=== PATIENT | male | born 1990 | race Hispanic/Latino ===

== ENCOUNTER 2018-11-02 17:24 | Emergency (ER) | payer SELFPAY ==
[2018-11-02] MEDS ORDERED: FENTANYL CITR 100 MCG/2 ML ONE ×2 (17:50→18:31)
[2018-11-02] MEDS ORDERED: ONDANSETRON 4 MG/2 ML VIAL ONE (17:51)
[2018-11-02] MEDS ORDERED: NA CHLORIDE 0.9% 1,000 ML ONE (17:51)
--- NOTE | 2018-11-02 18:08 | RAD REPORT ---
EXAM DESCRIPTION: CT - Head C Spine Cap Daniella Yen - 11/02/2018 5:46 pm CLINICAL HISTORY: Fall from 35 feet, hip pain, arm pain, back pain, headache COMPARISON: None. TECHNIQUE: Axial [address] head images were obtained. Axial [address] cervical spine images were obtaine d with sagittal and coronal reconstruction images reviewed. During dynamic enhancement of 100mL non-i onic contrast, axial 5 mm images of the chest, abdomen and pelvis were obtained. All CT scans are performed using dose optimization technique as appropriate and may include automated exposure control or mA/KV adjustment according to patient size. FINDINGS: No intracranial hemorrhage, mass or edema. No midline shift or abnormal fluid collection. Asymmetry is created by head tilt within the scanner. Mastoid air cells are clear. There is a trace a ir-fluid level in the right maxillary sinus without other findings to suspect facial trauma. This lik pili pre dates the injury. No skull fracture. CT cervical spine imaging shows normal height. Normal alignment of the vertebrae. No disc space narro wing. No paraspinal mass or hematoma seen. Central canal detail is inherently limited. Concerns for t raumatic disc herniation or traumatic cord injury can be further addressed with MR imaging. CT chest shows no pneumothorax, pulmonary contusion or pleural fluid collection. No mediastinal hemat nitin and the aorta and pulmonary arteries are unremarkable. No chest will mass or abnormal axillary fi nding. No displaced rib fracture or other significant bony finding. CT abdomen and pelvis show no injury to solid abdominal viscera. Gallbladder and biliary tree are unr emarkable. No bowel injury or significant finding. No urinary bladder injury. Patient has moderate vo lumes of hemorrhage within the left-side pelvic and pelvic floor. Hematoma displaces the urinary blad crow. No free air. No sternum fracture. No fracture or acute finding of the cervical, thoracic or lumbar vertebrae. Patient has a nondisplaced right ischium fracture. No other fracture of the right hemipelvis. Proxima l right femur is intact. Proximal left femur is intact. Patient has severely comminuted left hemipelvis fracture. Nondisplaced fracture is present at the left ischium. There is a comminuted fracture involving the inferior pubic ramus at the pubic symphysis. Comminuted fracture involves the anterior and posterior column of the acetabulum. Fracture line traverses the superior margin of the acetabulum as well. An oblique fractur e plane extends superiorly from the acetabulum through the superior aspect of the left iliac crest. T here is comminution of the fracture plain at the superior margin of the iliac crest. IMPRESSION: No hemorrhage, edema or acute CT Head finding. Air-fluid level in the right maxillary si nus is not suspected to be trauma in origin. No significant CT Cervical Spine finding. No significant CT Chest finding. Very extensive comminuted fracture changes involving the left hemipelvis. There is a large coronal fr acture plane that extends from the superior acetabular roof through the superior margin of the iliac crest where there are numerous comminuted fracture fragments. Patient has anterior and posterior colu mn fractures at the acetabulum continuing into the superior pubic ramus. Left inferior pubic ramus an d ischium fractures also present. Moderate hemorrhagic changes along the pelvic floor and left side of the pelvis. No injury to the bowel or solid abdominal viscera. No suspicion for bladder disruption.
[2018-11-02] MEDS ORDERED: CEFAZOLIN SODIUM 1 GM/VIAL ONE (18:19)
[2018-11-02] MEDS ORDERED: NA CHLORIDE 0.9% 100 ML IV ONE (18:20)
[2018-11-02] MEDS ORDERED: TETANUS & DIPHTHERIA TOX,ADULT 0.5 ML VIAL ONE (18:20)
--- NOTE | 2018-11-02 18:20 | EDPHYS ---
Physician Documentation [facility] Name: Tyree Perry Age: 28 yrs Sex: Male : 1990 Arrival Date: 11/02/2018 Time: 17:30 Bed 2 Private MD: ED Physician Sung Hannah HPI: 11/02 17:36 This 28 yrs old Male presents to ER via EMS with complaints of Fall Injury. kdr 17:36 Mechanism of injury: Fall: the patient fell from a building, approximately kdr approximately 35 feet, and struck a concrete surface. Associated injuries: The patient sustained Pelvis, left arm. Historical: - Allergies: 17:33 No Known Allergies; aj1 - Home Meds: 17:33 None [Active]; aj1 - PMHx: 17:33 None; aj1 - PSHx: 17:33 None; aj1 - Immunization history:: Flu vaccine is up to date. - Social history:: Smoking status: Patient uses tobacco products. - Immunization history: Last tetanus immunization: unknown. - Ebola Screening: : Patient denies travel to an Ebola-affected area in the 21 days before illness onset. ROS: 18:08 Constitutional: Unobtainable due to language barrier kdr 18:08 Unable to obtain ROS due to patient's speech is incomprehensible. Exam: 18:08 Constitutional: This is a well developed, well nourished patient who is awake, alert, kdr and in moderate to severe distress. Head/Face: Normocephalic, atraumatic. Eyes: Pupils equal round and reactive to light, extra-ocular motions intact. Lids and lashes normal. Conjunctiva and sclera are non-icteric and not injected. Cornea within normal limits. Periorbital areas with no swelling, redness, or edema. Neck: Trachea midline, no thyromegaly or masses palpated, and no cervical lymphadenopathy. Supple, full range of motion without nuchal rigidity, or vertebral point tenderness. No Meningismus. Chest/axilla: Normal chest wall appearance and motion. Nontender with no deformity. No lesions are appreciated. Cardiovascular: Regular rate and rhythm with a normal S1 and S2. No gallops, murmurs, or rubs. Normal PMI, no JVD. No pulse deficits. Respiratory: Lungs have equal breath sounds bilaterally, clear to auscultation and percussion. No rales, rhonchi or wheezes noted. No increased work of breathing, no retractions or nasal flaring. Abdomen/GI: Soft, non-tender, with normal bowel sounds. No distension or tympany. No guarding or rebound. No evidence of tenderness throughout. Back: No spinal tenderness. No costovertebral tenderness. Full range of motion. Skin: Warm, dry with normal turgor. Normal color with no rashes, no lesions, and no evidence of cellulitis. 18:08 Musculoskeletal/extremity: Extremities: pain, There is pain and deformity to the left elbow with possible open fracture. There is abrasions to the left knee. Vital Signs: 17:34 BP 112 / 88; Pulse 92; Resp 20; Pulse Ox 100% on R/A; Pain 10/10; aj1 18:19 BP 115 / 81; Pulse 100; Resp 18; Temp 97.2; Pulse Ox 100% on R/A; Pain 9/10; sg 18:37 BP 84 / 74; Pulse 104; Resp 20; Pulse Ox 100% on R/A; aj1 18:40 BP 86 / 74; Pulse 112; Resp 20; Pulse Ox 100% on R/A; aj1 18:50 BP 99 / 59; Pulse 88; Resp 18; Pulse Ox 99% ; aj1 Winston Coma Score: 17:34 Eye Response: spontaneous(4). Verbal Response: oriented(5). Motor Response: obeys aj1 commands(6). Total: 15. 18:19 Eye Response: spontaneous(4). Verbal Response: oriented(5). Motor Response: obeys sg commands(6). Total: 15. 18:50 Eye Response: spontaneous(4). Verbal Response: oriented(5). Motor Response: obeys aj1 commands(6). Total: 15. Trauma Score (Adult): 17:34 Eye Response: spontaneous(1); Verbal Response: oriented(1); Motor Response: obeys aj1 commands(2); Systolic BP: > 89 mm Hg(4); Respiratory Rate: 10 to 29 per min(4); Dyllan Score: 15; Trauma Score: 12 18:19 Eye Response: spontaneous(1); Verbal Response: oriented(1); Motor Response: obeys sg commands(2); Systolic BP: > 89 mm Hg(4); Respiratory Rate: 10 to 29 per min(4); Winston Score: 15; Trauma Score: 12 MDM: 18:19 Patient medically screened. kdr 20:00 Data reviewed: vital signs, lab test result(s), radiologic studies. Counseling: I had a kdr detailed discussion with the patient and/or guardian regarding: the historical points, exam findings, and any diagnostic results supporting the discharge/admit diagnosis, lab results, radiology results, the need to transfer to another facility. 11/02 17:36 Order name: Basic Metabolic Panel kdr 11/02 17:36 Order name: CBC with Diff kdr 11/02 17:36 Order name: CT Traumagram (Head C Spine CAP W Con) kdr 11/02 17:36 Order name: Humerus Left XRAY kdr 11/02 18:07 Order name: Elbow Left 2 View EDMS 11/02 18:12 Order name: Knee Left 3 View XRAY kdr 11/02 17:36 Order name: Labs collected and sent; Complete Time: 17:44 kdr Administered Medications: 17:43 Drug: fentaNYL (PF) 50 mcg Route: IVP; Site: right wrist; sg 18:00 Follow up: Response: Pain is unchanged, physician notified sg 17:44 Drug: NS 0.9% 1000 ml Route: IV; Rate: 1 bolus; Site: right wrist; sg 18:50 Follow up: IV Status: Completed infusion; IV Intake: 1000ml aj 17:44 Drug: Zofran 4 mg Route: IVP; Site: right wrist; sg 18:18 Follow up: Response: No adverse reaction; Nausea is decreased sg 18:10 Drug: fentaNYL (PF) 50 mcg Route: IVP; Site: right wrist; sg 18:13 Not Given (Duplicate Order): Ancef 1 grams IVPB once sg 18:13 Not Given (Duplicate Order): Tetanus-Diphtheria Toxoid Adult 0.5 ml IM once sg 18:17 Drug: Ancef 1 grams Route: IVPB; Site: right wrist; sg 19:19 Follow up: IV Status: Infusion continued upon transfer aj1 18:17 Drug: Tetanus-Diphtheria Toxoid Adult 0.5 ml {Harness Mender: [employer]. Exp: 10/11/2020. Lot #: [id number]. } Route: IM; Site: right deltoid; 18:50 Follow up: Response: No adverse reaction aj1 18:30 Drug: fentaNYL (PF) 50 mcg Route: IVP; Site: right forearm; aj1 Disposition: 11/02/18 18:19 Transfer ordered to [facility]. Diagnosis is Left Pelvis comminuted fracture, Open Left elbow fracture, 35" fall onto concrete. - Reason for transfer: Higher level of care. - Accepting physician is Dr. Silver. - Condition is Serious. - Problem is new. - Symptoms have improved. Signatures: Dispatcher [employer] EDMS Chelsea Ocampo RN RN aj1 Jim Hermosillo RN RN sg Sung Hannah MD MD kdr William Kiran RN RN ao Corrections: (The following items were deleted from the chart) 18:07 17:36 Elbow Left 3 View+RAD.RAD.BRZ ordered. EDWY EDMS 18:48 18:25 Pelvis+RAD.RAD.BRZ ordered. EDWY EDMS 18:50 18:25 Hip Left 2 View+RAD.RAD.BRZ ordered. EDWY EDMS 19:14 18:19 11/02/2018 18:19 Transfer ordered to [facility]. ao Diagnosis is Left Pelvis comminuted fracture, Open Left elbow fracture, 35" fall onto concrete. Reason for transfer: Higher level of care. Accepting physician is Dr. Silver. Condition is Serious. Problem is new. Symptoms have improved. kdr
--- NOTE | 2018-11-02 18:20 | ER ---
Nurse's Notes [facility] Name: Tyree Perry Age: 28 yrs Sex: Male : 1990 Arrival Date: 11/02/2018 Time: 17:30 Bed 2 Private MD: Diagnosis: Left Pelvis comminuted fracture, Open Left elbow fracture, 35" fall onto concrete Presentation: 11/02 17:30 Presenting complaint: EMS states: Patient fell 35 feet from the top a shop building, aj1 landing on his left side. Patient reports bilateral hip pain, left arm pain and back pain. Deformity noted to left upper arm. Abrasions noted to left knee and left fernandez. Patient denies LOC, headache, neck pain. Transition of care: patient was not received from another setting of care. Onset of symptoms was November 02, 2018. Risk Assessment: Do you want to hurt yourself or someone else? Patient reports no desire to harm self or others. Initial Sepsis Screen: Does the patient meet any 2 criteria? HR > 90 bpm. No. Patient's initial sepsis screen is negative. Does the patient have a suspected source of infection? No. Patient's initial sepsis screen is negative. Care prior to arrival: None. 17:30 Method Of Arrival: EMS: [facility] aj 17:30 Acuity: MIO 2 aj1 17:34 Mechanism of Injury: Fall from roof approximately 35 feet. Trauma event details: Injury aj1 occurred in the [facility]. Trauma Activation: Alert Physician: ED Physician; Name: Camden; Notified At: 17:14; Arrived At: Physician: General Surgeon; Name: ; Notified At: 17:14; Arrived At: Physician: Radiology; Name: Mary; Notified At: 17:14; Arrived At: Physician: Respiratory; Name: ; Notified At: 17:14; Arrived At: Physician: Lab; Name: ; Notified At: 17:14; Arrived At: Historical: - Allergies: 17:33 No Known Allergies; aj1 - Home Meds: 17:33 None [Active]; aj1 - PMHx: 17:33 None; aj1 - PSHx: 17:33 None; aj1 - Immunization history:: Flu vaccine is up to date. - Social history:: Smoking status: Patient uses tobacco products. - Immunization history: Last tetanus immunization: unknown. - Ebola Screening: : Patient denies travel to an Ebola-affected area in the 21 days before illness onset. Screenin:34 Abuse screen: Denies threats or abuse. Denies injuries from another. Tuberculosis aj1 screening: No symptoms or risk factors identified. 17:39 Nutritional screening: No deficits noted. aj1 18:50 Fall Risk Fall in past 12 months (25 points). No secondary diagnosis (0 pts). IV access aj1 (20 points). Ambulatory Aid- None/Bed Rest/Nurse Assist (0 pts). Gait- Normal/Bed Rest/Wheelchair (0 pts) Mental Status- Oriented to own ability (0 pts). Total Nair Fall Scale indicates High Risk Score (45 or more points). Fall prevention measures have been instituted. Primary Survey: 17:34 NO uncontrolled hemorrhage observed. A: A: Airway: patent. Breathing/Chest: Respiratory aj1 pattern: regular, Respiratory effort: spontaneous, unlabored. Circulation: Skin color: pink. Circulation: Bilateral legs appear pale. Disability Alert. Exposure/Environment: All clothing and personal items were removed. There is no evidence of uncontrolled external bleeding. Obvious injury(ies) are noted at this time: deformity to left upper arm, abrasion to left knee and left fernandez, pain to bilateral hips. 18:15 Reassessment Airway Airway Patent Breathing/Chest Respiratory pattern Regular aj1 Respiratory effort Spontaneous Unlabored Breath sounds Clear Chest inspection Symmetrical Circulation Heart tones Present Pulses Palpable Color Pale Temperature Warm. Secondary Survey: 17:30 HEENT: No deficits noted. Head No injury/deformity Face No injury/deformity Eyes: No aj1 injury or deformity noted. Ears: clear Nose: clear. Gastrointestinal: No deficits noted. Abdomen is soft, Bowel sounds present in all quadrants. Palpation No deficit noted. : No deficits noted. No signs and/or symptoms were reported regarding the genitourinary system. Musculoskeletal: Range of motion: limited in left elbow, left wrist, left hip and right hip Bony deformity noted of left tricep. Assessment: 17:34 General: Appears uncomfortable, Behavior is calm, cooperative, appropriate for age. aj1 Pain: Complains of pain in back, left hip, right hip and left arm Pain currently is 10 out of 10 on a pain scale. Neuro: Level of Consciousness is awake, alert, obeys commands, Oriented to person, place, time, situation, Speech is normal, Denies LOC, hitting his head, vomiting. EENT: No signs and/or symptoms were reported regarding the EENT system. Cardiovascular: Patient's skin is warm and dry. Respiratory: Airway is patent Respiratory effort is even, unlabored, Respiratory pattern is regular, symmetrical. GI: Abdomen is round. Derm: abrasion noted to left knee and left fernandez. Bilateral legs appear pale. Musculoskeletal: Range of motion: limited in left elbow, left hip and right hip. 17:35 Reassessment: Patient taken straight to CT scan per orders from Dr. Hannah, aj1 accompanied by ОЛЬГА Fernandez. 17:44 Reassessment: pt in CT at this time time, tearful and crying reports the pain is sg increasing, pt medicated as ordered, CT scan in process, pt to radiology after CT scan. 18:10 Reassessment: Patient returned to room from radiology. aj1 18:12 Neuro: Level of Consciousness is awake, alert, obeys commands. Cardiovascular: aj1 Patient's skin is warm and dry. Respiratory: Airway is patent Respiratory effort is even, unlabored, Respiratory pattern is regular, symmetrical, Breath sounds are clear bilaterally. GI: small bruised noted to left side of abdomen Bowel sounds present X 4 quads. Abd is soft and non tender X 4 quads. : No signs and/or symptoms were reported regarding the genitourinary system. suprapubic tenderness. Derm: bilateral legs are pale. Musculoskeletal: Range of motion: limited in left elbow, left wrist, left hip and right hip. 18:29 Reassessment: report given to Bianca ROLONupholstery parts sorter nurse for ER. sg 18:30 Reassessment: Patient reports continued pain, notified Dr. Hannah. Order received. aj1 18:35 Reassessment: Dr. Hannah at bedside to assess open fracture of left upper arm. Splint aj1 placed to left arm by Dr. Hannah, assisted by Nate technical sourcing recruiter. 18:37 Reassessment: Patient is hypotensive, Dr. Hannah at bedside and aware, 1L bolus of NS aj1 infusing at this time. Patient appears pale, restless. 18:50 Reassessment: Life flight at bedside. Patient placed in a pelvic binder. BP has aj1 improved slightly. Vital Signs: 17:34 BP 112 / 88; Pulse 92; Resp 20; Pulse Ox 100% on R/A; Pain 10/10; aj1 18:19 BP 115 / 81; Pulse 100; Resp 18; Temp 97.2; Pulse Ox 100% on R/A; Pain 9/10; sg 18:37 BP 84 / 74; Pulse 104; Resp 20; Pulse Ox 100% on R/A; aj1 18:40 BP 86 / 74; Pulse 112; Resp 20; Pulse Ox 100% on R/A; aj1 18:50 BP 99 / 59; Pulse 88; Resp 18; Pulse Ox 99% ; aj1 Dyllan Coma Score: 17:34 Eye Response: spontaneous(4). Verbal Response: oriented(5). Motor Response: obeys aj1 commands(6). Total: 15. 18:19 Eye Response: spontaneous(4). Verbal Response: oriented(5). Motor Response: obeys sg commands(6). Total: 15. 18:50 Eye Response: spontaneous(4). Verbal Response: oriented(5). Motor Response: obeys aj1 commands(6). Total: 15. Trauma Score (Adult): 17:34 Eye Response: spontaneous(1); Verbal Response: oriented(1); Motor Response: obeys aj1 commands(2); Systolic BP: > 89 mm Hg(4); Respiratory Rate: 10 to 29 per min(4); [place] Score: 15; Trauma Score: 12 18:19 Eye Response: spontaneous(1); Verbal Response: oriented(1); Motor Response: obeys sg commands(2); Systolic BP: > 89 mm Hg(4); Respiratory Rate: 10 to 29 per min(4); Dyllan Score: 15; Trauma Score: 12 ED Course: 17:30 Patient arrived in ED. dm5 17:30 Chelsea Ocampo, ОЛЬГА is Primary Nurse. aj1 17:32 Sung Hannah MD is Attending Physician. kdr 17:32 Triage completed. aj1 17:[address] via stretcher. vm2 17:34 Patient has correct armband on for positive identification. Bed in low position. Call aj1 light in reach. Side rails up X 1. 17:34 Patient maintains SpO2 saturation greater than 95% on room air. aj1 17:38 Arm band placed on. aj1 17:39 No provider procedures requiring assistance completed. Maintain EMS IV. Dressing aj1 intact. Good blood return noted. Site clean \\T\\ dry. Gauge \\T\\ site: 18 g to hand. 17:46 CT Traumagram (Head C Spine CAP W Con) In Process Unspecified. EDMS 18:09 Humerus Left XRAY In Process Unspecified. EDMS 18:09 Thermoregulation: warm blanket given to patient. ph 18:11 Elbow Left 2 View In Process Unspecified. EDMS 18:15 \\[id number] a transfer with Gwendolyn at the [facility]/ \\[id number]\\[id number] Nadeem calabrese Trauma doctor nutritional services cook for [facility] with Dr. Hannah for patient transfer consultation./ \\[id number]\\[id number] administrative approval given by Gwendolyn Rhoades RN/ patient going to the ER/ report to be called to [phone] / Gwendolyn has contacted [facility] for patient transport. 18:30 Initial lab(s) drawn, by nh, sent to lab. Inserted saline lock: 18 gauge in right aj1 antecubital area, using aseptic technique. Blood collected. 18:48 Knee Left 3 View XRAY In Process Unspecified. EDMS 18:50 Patient transferred, IV remains in place. aj1 Administered Medications: 17:43 Drug: fentaNYL (PF) 50 mcg Route: IVP; Site: right wrist; sg 18:00 Follow up: Response: Pain is unchanged, physician notified sg 17:44 Drug: NS 0.9% 1000 ml Route: IV; Rate: 1 bolus; Site: right wrist; sg 18:50 Follow up: IV Status: Completed infusion; IV Intake: 1000ml aj1 17:44 Drug: Zofran 4 mg Route: IVP; Site: right wrist; sg 18:18 Follow up: Response: No adverse reaction; Nausea is decreased sg 18:10 Drug: fentaNYL (PF) 50 mcg Route: IVP; Site: right wrist; sg 18:13 Not Given (Duplicate Order): Ancef 1 grams IVPB once sg 18:13 Not Given (Duplicate Order): Tetanus-Diphtheria Toxoid Adult 0.5 ml IM once sg 18:17 Drug: Ancef 1 grams Route: IVPB; Site: right wrist; sg 19:19 Follow up: IV Status: Infusion continued upon transfer aj1 18:17 Drug: Tetanus-Diphtheria Toxoid Adult 0.5 ml {Rand Maker: [employer]. Exp: 10/11/2020. Lot #: [id number]. } Route: IM; Site: right deltoid; 18:50 Follow up: Response: No adverse reaction aj1 18:30 Drug: fentaNYL (PF) 50 mcg Route: IVP; Site: right forearm; aj1 Intake: 18:19 PO: 0ml; IV: 1000ml; Total: 1000ml. sg 18:50 IV: 1000ml; Total: 2000ml. aj1 Outcome: 18:19 ER care complete, transfer ordered by . kdr 18:50 Transferred by helicopter to [facility]. aj1 18:50 critical 18:50 Discharge instructions given to patient, family, Instructed on the need for transfer, Demonstrated understanding of instructions. 18:50 Patient's length of stay was not longer than 2 hours. 19:14 Patient left the ED. ao Signatures: Dispatcher [employer] EDMS Chelsea Ocampo RN RN aj1 Alexa Atwood RN RN Jim Tiwari RN RN Sung Hannah MD MD kdr Hall, Patricia, RN RN William Kiran RN RN Liliam Chung [facility] Bibi Siegel Corrections: (The following items were deleted from the chart) 17:44 17:43 fentaNYL (PF) 50 mcg IVP in right hand [facility] 19:13 18:37 Reassessment: Patient is hypotensive, Dr. Hannah at bedside and aware, 1L bolus aj1 of NS infusing at this time aj1
--- NOTE | 2018-11-02 18:23 | RAD REPORT ---
EXAM DESCRIPTION: RAD - Humerus Left - 11/02/2018 6:09 pm CLINICAL HISTORY: Fall left arm pain COMPARISON: None. FINDINGS: There is a transverse fracture through the distal shaft of the left humerus. Small fractur e fragments are seen along the spleen. There is an additional comminuted fracture plane along the courtney g axis of the distal humerus. This transects the distal humerus and condyles along the long axis. Allan roximately 15 mm of distraction is present. The distal fracture fragments are displaced 1 full shaft width from the main shaft of the humerus. IMPRESSION: Comminuted distal left humerus fracture as detailed.
--- NOTE | 2018-11-02 18:24 | RAD REPORT ---
EXAM DESCRIPTION: RAD - Elbow Left 2 View - 11/02/2018 6:12 pm CLINICAL HISTORY: Fall from 35 feet, left arm pain COMPARISON: None. FINDINGS: Comminuted transverse fracture of the distal shaft of the humerus noted. There is addition al fracture plane along the long access that extends from the shaft fracture through the epicondyles. The epicondyles are transected in distracted 15 mm. There are numerous small fracture fragments vilma g the fracture plane. Radial head fracture is also present without displacement. Olecranon appears in tact. No foreign body. IMPRESSION: Grossly comminuted distal left humerus fracture as detailed. Radial head fracture.
[2018-11-02 18:54] LABS: Absolute Monocytes 1.4 K/uL (0.1-1.3); Absolute Neutrophil 18.6 K/uL (1.8-8.0); Basophils % 0.4 % (0-1.3); Eosinophils % 0.1 % (0-4.4); Hematocrit 37.8 % (39.6-49.0); MPV 9.6 fL (7.6-11.3); Monocytes % 6.5 % (3.3-12.3); RBC Red Blood Cell Count 4.22 M/uL (4.33-5.43)
[2018-11-02 18:56] LABS: Potassium 3.1 mmol/L (3.5-5.1)
--- NOTE | 2018-11-02 19:21 | RAD REPORT ---
EXAM DESCRIPTION: RAD - Knee Left 3 View - 11/02/2018 6:47 pm CLINICAL HISTORY: Fall, knee pain COMPARISON: None. FINDINGS: No fracture, dislocation or periosteal reaction.No joint effusion seen. No joint space guanaco rowing. No soft tissue abnormality. IMPRESSION: Negative left knee. Clinical concerns for internal derangement or occult bony injury could be further assessed with MR im aging.
== END 2018-11-02 19:14 | disposition short-term general hospital (02) ==
LOC: ER 17:24
DX: S42.402B Unspecified fracture of lower end of left humerus, initial encounter for open fracture (principal); S32.9XXA Fracture of unspecified parts of lumbosacral spine and pelvis, initial encounter for closed fracture; W13.9XXA Fall from, out of or through building, not otherwise specified, initial encounter; Y93.9 Activity, unspecified; Y92.9 Unspecified place or not applicable; Z23 Encounter for immunization; Z72.0 Tobacco use
CPT/HCPCS: 36415; 70450; 71260; 72125; 74177; 80048; 85025; 90714; 99285; J0690; J2405; J3010; J7030; Q9967